=== PATIENT | male | born 1995 | race Two or more races ===

== ENCOUNTER 2018-10-22 18:27 | Emergency (ER) | payer BC ==
[~2018-10-22] VITALS: Ht 175.3 cm; Wt 72.6 kg
[2018-10-22 18:30] VITALS: BP 150/91
[2018-10-22] MEDS ORDERED: NAPR500T8 PO (18:52)
--- NOTE | 2018-10-22 18:53 | PHYS DOC ---
Past Medical History Past Medical History: No Pertinent History Past Surgical History: Appendectomy Alcohol Use: Occasionally Drug Use: Marijuana Adult General Chief Complaint Chief Complaint: HAND PROBLEM HPI HPI Patient is a 23 year old male that presents with right hand pain that radiates up the right forearm. 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 The patient states that when he is off work it tends to get better and is worse at the end of his shifts. His been taking ibuprofen at home for the pain that is helped some. States his pain as 5 out of 10 in severity and throbbing. Review of Systems Review of Systems Constitutional: Denies fever or chills [] Eyes: Denies change in visual acuity, redness, or eye pain [] HENT: Denies nasal congestion or sore throat [] Respiratory: Denies cough or shortness of breath [] Cardiovascular: No additional information not addressed in HPI [] GI: Denies abdominal pain, nausea, vomiting, bloody stools or diarrhea [] : Denies dysuria or hematuria [] Musculoskeletal: Reports hand pain. Integument: Denies rash or skin lesions [] Neurologic: Denies headache, focal weakness or sensory changes [] Endocrine: Denies polyuria or polydipsia [] Complete systems were reviewed and found to be within normal limits, except as documented in this note. Allergies Allergies Allergies Coded Allergies Type Severity Reaction Last Updated Verified No Known Drug Allergies 10/22/18 No Physical Exam Physical Exam Constitutional: Well developed, well nourished, no acute distress, non-toxic appearance. [] HENT: Normocephalic, atraumatic, bilateral external ears normal, oropharynx moist, no oral exudates, nose normal. [] Eyes: PERRLA, EOMI, conjunctiva normal, no discharge. [] Skin: Warm, dry, no erythema, no rash. [] Back: No tenderness, no CVA tenderness. [] Extremities: No tenderness on palpation. Neurologic: Alert and oriented X 3, normal motor function, normal sensory function, no focal deficits noted. [] Psychologic: Affect normal, judgement normal, mood normal. [] Current Patient Data Vital Signs Vital Signs Date Time Temp Pulse Resp B/P (MAP) Pulse Ox O2 Delivery O2 Flow Rate FiO2 10/22/18 18:30 98.6 98 15 150/91 (110) 97 Room Air 98.6 EKG EKG [] Radiology/Procedures Radiology/Procedures [] Course & Med Decision Making Course & Med Decision Making Pertinent Labs and Imaging studies reviewed. (See chart for details) The patient appears to have a tendinopathy. Discussed with patient that his job is causing him to have this condition and that the best treatment for this is rest. Recommended the patient find a new job if possible as the job is causing his tendons to be overused. Dragon Disclaimer Dragon Disclaimer This electronic medical record was generated, in whole or in part, using a voice recognition dictation system. Departure Departure Impression: Primary Impression: Tendinopathy Disposition: HOME, SELF-CARE Condition: STABLE Additional Instructions: Thank you for visiting [facility]. We appreciate you trusting us with your care. If any additional problems come up don't hesitate to return to visit us. Please follow up with your primary care provider so they can plan additional care if needed and know about the problem that you had. If symptoms worsen come back to the Emergency Department. Any concerning symptoms that start such as chest pain, shortness of air, weakness or numbness on one side of the body, running high fevers or any other concerning symptoms return to the ER. Scripts Naproxen (NAPROXEN) 500 Mg Tablet.dr 1 TAB PO BID PRN for INFLAMMATION, #20 TAB 1 Refill Prov: ARISTEO HEREDIA APRN 10/22/18 ARISTEO HEREDIA APRN Oct 22, 2018 18:53
== END 2018-10-22 18:56 | disposition home or self-care (01) ==
LOC: ER 18:27
DX: M77.8 Other enthesopathies, not elsewhere classified (principal); M79.641 Pain in right hand
CPT/HCPCS: 99282